=== PATIENT | male | born 1985 | race Caucasian/White ===

== ENCOUNTER 2019-03-03 18:59 | Emergency (ER) | payer BC ==
[~2019-03-03] VITALS: Ht 180.3 cm; Wt 99.8 kg
[2019-03-03 19:35] VITALS: BP 123/75
--- NOTE | 2019-03-03 19:38 | NUR ---
TO LOBBY A/W BED AMBULATORY
--- NOTE | 2019-03-03 21:10 | NUR ---
PT AMBULATED TO BED 08
--- NOTE | 2019-03-03 21:10 | NUR ---
33 YO M BIB SELF PRESENTS TO ED CO 09/21 SHARP LEFT SIDE PAIN BELOW RIBS ON HIP AREA THAT ONLY OCCURS WHILE COUGHING. PT WAS DX WITH SHINGLES X 2 WEEKS AGO TO SAME SITE. HEALING, SCABBED RASH NOTED. PT STATES HE FINISHED TX X 3 DAYS AGO. DENIES FEVER, NVD, URINARY BURNING OR LOWER BACK PAIN. COUGH IS DRY, NAGGING ALSO X 2 DAYS. LUNGS CTA. PMH-- DENIES RX-- DENIES
--- NOTE | 2019-03-03 21:48 | NUR ---
DR. JESENIA BRUCE AT BEDSIDE.
[2019-03-03 21:59] VITALS: BP 123/75
--- NOTE | 2019-03-03 21:59 | NUR ---
Patient discharged with v/s stable. Written and verbal after care instructions given and explained. Patient alert, oriented and verbalized understanding of instructions. Ambulatory with steady gait. All questions addressed prior to discharge. ID band removed. Patient advised to follow up with PMD. Rx of NAPROSYN, TESSALON PERLES, AUGMENTIN WAS given. Patient educated on indication of medication including possible reaction and side effects. Opportunity to ask questions provided and answered. PT WAS D/C BY DR. BA
== END 2019-03-03 21:59 | disposition home or self-care (01) ==
LOC: MED 18:59
DX: J20.9 Acute bronchitis, unspecified (principal)
CPT/HCPCS: 99283